=== PATIENT | male | born 1980 | race African-American/Black ===

== ENCOUNTER 2017-02-24 18:25 | Emergency (ER) | payer MEDICARE, MEDICAID ==
[~2017-02-24] VITALS: Ht 182.9 cm; Wt 88.7 kg
[2017-02-24] MEDS ORDERED: HYDROCODONE/ACETAMINOPHEN 5/325MG TABLET PO ONE (19:45)
[2017-02-24 20:05] VITALS: BP 122/62
== END 2017-02-24 20:41 | disposition home or self-care (01) ==
LOC: ER 19:37
DX: L02.31 Cutaneous abscess of buttock (principal); F17.200 Nicotine dependence, unspecified, uncomplicated
CPT/HCPCS: 99283